=== PATIENT | male | born 1930 | race Caucasian/White ===

== ENCOUNTER 2017-06-23 05:07 | Emergency (ER) | payer OTHER, BC ==
[~2017-06-23] VITALS: Ht 177.8 cm; Wt 70.1 kg
[~2017-06-23 05:07] MED LIST: APRESOLINE100 MG PO; IBUPROFEN800 MG PO; LISINOPRIL5 MG PO; METOPROLOL SUCC25 MG PO; METOPROLOL SUCC50 MG PO; XANAX0.25 MG PO; ZOFRAN ODT4 MG PO; ZOFRAN4 MG PO
[2017-06-23 06:14] LABS: EOSINOPHIL (%) 0.1 % (0-5); HEMATOCRIT 40.6 % (38.0-50.0); IMMATURE GRANULOCYTE (%) 0.7 % (0.0-0.7); IMMATURE GRANULOCYTE COUNT 0.1 K/uL; INSTRUMENT ABS NEUTROPHIL CT 5.9 K/uL; LYMPHOCYTE COUNT 0.7 K/uL (1.0-2.8); MCH 32.6 PG (29.0-34.0); MCHC 33.7 G/DL (30.0-36.0); MCV 96.7 FL (86-99); MONOCYTE (%) 11.4 % (3-12); MONOCYTE COUNT 0.9 K/uL (0-0.8); NEUTROPHIL (%) 78.6 % (45-76); NEUTROPHIL COUNT 5.9 K/uL (1.8-6.4); PLATELET COUNT 158 K/uL (156-360); RBC DIS.WIDTH-CV 11.9 % (11.8-14.6); RBC DIS.WIDTH-SD 42.4 % (39-53); WHITE BLOOD COUNT 7.5 K/uL (4.1-10.2)
[2017-06-23 06:24] LABS: CHLORIDE 102 mEq/L (99-109); SODIUM 132 mEq/L (136-147)
[2017-06-23 06:27] LABS: GLUCOSE 108 mg/dL (70-99)
[2017-06-23 06:28] LABS: ANION GAP 9 MEQ/L (2-14)
[2017-06-23 06:29] LABS: TOTAL BILIRUBIN 1.3 mg/dL (0.0-1.0)
[2017-06-23 06:30] LABS: ALKALINE PHOSPHATASE 43 IU/L (3-129); GFR ESTIMATE (CALCULATED) > 59 mL/min/
[2017-06-23 06:31] LABS: UREA NITROGEN (BUN) 13 mg/dL (9-23)
[2017-06-23 06:34] LABS: LIPASE 88 U/L (1.0-51.0)
[2017-06-23 06:42] LABS: TROP-I INTERPRETATION NEGATIVE; TROPONIN-I 0.02 ng/mL (0.0-0.30)
[2017-06-23 06:55] LABS: ADD MIUA? NO; BILIRUBIN NEGATIVE; BLOOD NEGATIVE; COLOR YELLOW ((YELLOW)); GLUCOSE (STRIP) NEGATIVE; KETONES NEGATIVE; LEUKOCYTES NEGATIVE; NITRITE NEGATIVE; PROTEIN (STRIP) NEGATIVE; SPECIFIC GRAVITY 1.015 (1.000-1.030); UROBILINOGEN 0.2 MG/DL (0.2-1.0)
[2017-06-23 08:39] LABS: TROP-I INTERPRETATION NEGATIVE; TROPONIN-I 0.02 ng/mL (0.0-0.30)
[2017-06-23] MEDS ORDERED: ZOFRAN ODT4 MG PO (09:06)
[2017-06-23] MEDS ORDERED: BENTYL20 MG PO (09:06)
[2017-06-23 09:58] VITALS: BP 157/68
== END 2017-06-23 09:58 | disposition home or self-care (01) ==
LOC: EME 05:07
PROVIDERS: Nurse Practitioner Family; Physician Assistant
DX: R11.0 Nausea (principal); R19.7 Diarrhea, unspecified; M79.1 Myalgia; I10 Essential (primary) hypertension
CPT/HCPCS: 74022; 74177; 80053; 81003; 83605; 83690; 84484; 85025; 93005; 99281; 99284; J0500; J7030

== ENCOUNTER 2017-09-11 14:12 | Emergency (ER) | payer OTHER, BC ==
[~2017-09-11] VITALS: Ht 177.8 cm; Wt 70.4 kg
[~2017-09-11 14:12] MED LIST changes: +BENTYL20 MG PO
[2017-09-11 14:52] LABS: HEMATOCRIT 45.9 % (38.0-50.0); HEMOGLOBIN 16.1 G/DL (12.5-16.6); MCH 33.6 PG (29.0-34.0); MCHC 35.1 G/DL (30.0-36.0); MCV 95.8 FL (86-99); PLATELET COUNT 238 K/uL (156-360); RBC DIS.WIDTH-CV 12.7 % (11.8-14.6); RBC DIS.WIDTH-SD 45.3 % (39-53); RED BLOOD COUNT 4.79 M/uL (4.00-5.50)
[2017-09-11 15:00] LABS: ALBUMIN 3.9 g/dL (3.2-4.8); CHLORIDE 102 mEq/L (99-109); POTASSIUM 4.1 mEq/L (3.7-5.4); SODIUM 133 mEq/L (136-147)
[2017-09-11 15:02] LABS: GLUCOSE 154 mg/dL (70-99); TOTAL PROTEIN 7.3 g/dL (6.4-8.3)
[2017-09-11 15:04] LABS: TOTAL BILIRUBIN 0.7 mg/dL (0.0-1.0)
[2017-09-11 15:06] LABS: ALKALINE PHOSPHATASE 58 IU/L (3-129); CREATININE 1.1 mg/dL (0.6-1.3); GFR ESTIMATE (CALCULATED) > 59 mL/min/ (58.99-99999)
[2017-09-11 15:07] LABS: UREA NITROGEN (BUN) 16 mg/dL (9-23)
[2017-09-11 15:08] LABS: AST (GOT) 24 IU/L (2-34)
[2017-09-11 15:09] LABS: ALT (GPT) 22 IU/L (3-49)
[2017-09-11] MEDS ORDERED: AUGMENTIN500 MG PO (16:40)
[2017-09-11] MEDS ORDERED: CLARITIN10 M3 PO (16:40)
[2017-09-11 16:48] VITALS: BP 181/81
== END 2017-09-11 16:49 | disposition home or self-care (01) ==
LOC: EME 14:12
DX: J32.9 Chronic sinusitis, unspecified (principal); I10 Essential (primary) hypertension
CPT/HCPCS: 71020; 80053; 85027; 93005; 99281; 99283

== ENCOUNTER 2017-09-14 08:51 | Emergency (ER) | payer OTHER, BC ==
[~2017-09-14] VITALS: Ht 177.8 cm; Wt 71.6 kg
[~2017-09-14 08:51] MED LIST changes: +AUGMENTIN500 MG PO; +CLARITIN10 M3 PO
[2017-09-14 09:42] LABS: HEMATOCRIT 46.4 % (38.0-50.0); HEMOGLOBIN 16.5 G/DL (12.5-16.6); MCH 33.7 PG (29.0-34.0); MCHC 35.6 G/DL (30.0-36.0); MCV 94.9 FL (86-99); PLATELET COUNT 231 K/uL (156-360); RBC DIS.WIDTH-CV 12.5 % (11.8-14.6); RED BLOOD COUNT 4.89 M/uL (4.00-5.50); WHITE BLOOD COUNT 8.7 K/uL (4.1-10.2)
[2017-09-14 09:54] LABS: ALBUMIN 3.8 g/dL (3.2-4.8)
[2017-09-14 09:55] LABS: CHLORIDE 103 mEq/L (99-109); POTASSIUM 4.5 mEq/L (3.7-5.4); SODIUM 131 mEq/L (136-147)
[2017-09-14 09:57] LABS: GLUCOSE 116 mg/dL (70-99); TOTAL PROTEIN 6.7 g/dL (6.4-8.3)
[2017-09-14 09:59] LABS: TOTAL BILIRUBIN 0.8 mg/dL (0.0-1.0)
[2017-09-14 10:00] LABS: ALKALINE PHOSPHATASE 59 IU/L (3-129)
[2017-09-14 10:01] LABS: CREATININE 0.9 mg/dL (0.6-1.3); GFR ESTIMATE (CALCULATED) > 59 mL/min/ (58.99-99999)
[2017-09-14 10:02] LABS: AST (GOT) 20 IU/L (2-34); UREA NITROGEN (BUN) 17 mg/dL (9-23)
[2017-09-14 10:03] LABS: ALT (GPT) 19 IU/L (3-49)
[2017-09-14 10:04] LABS: LIPASE 110 U/L (1.0-51.0)
[2017-09-14 12:00] LABS: C DIFF TOXIN NEGATIVE (NEGATIVE)
[2017-09-14] MEDS ORDERED: ZOFRAN ODT4 MG PO (12:03)
[2017-09-14] MEDS ORDERED: BENTYL20 MG PO (12:03)
[2017-09-14 13:09] VITALS: BP 184/81
== END 2017-09-14 13:14 | disposition home or self-care (01) ==
LOC: EME 08:51
PROVIDERS: Nurse Practitioner Family
DX: R11.2 Nausea with vomiting, unspecified (principal); R19.7 Diarrhea, unspecified; E86.0 Dehydration; R74.8 Abnormal levels of other serum enzymes; I10 Essential (primary) hypertension
CPT/HCPCS: 74177; 80053; 81003; 83605; 83690; 85027; 87493; 93005; 99281; 99285; J2405; J7030

== ENCOUNTER 2018-03-22 10:41 | Emergency (ER) | payer OTHER, BC ==
[~2018-03-22] VITALS: Ht 177.8 cm; Wt 70.0 kg
[2018-03-22 12:08] LABS: APPEARANCE CLEAR ((CLEAR)); BILIRUBIN NEGATIVE; BLOOD NEGATIVE; COLOR YELLOW ((YELLOW)); GLUCOSE (STRIP) NEGATIVE; KETONES NEGATIVE; LEUKOCYTES NEGATIVE; NITRITE NEGATIVE; PROTEIN (STRIP) NEGATIVE; SPECIFIC GRAVITY 1.012 (1.000-1.030); UCUL ADDED? NO; UROBILINOGEN 0.2 MG/DL (0.2-1.0)
[2018-03-22 12:16] LABS: HEMATOCRIT 44.8 % (38.0-50.0); MCH 34.1 PG (29.0-34.0); MCHC 35.7 G/DL (30.0-36.0); MCV 95.5 FL (86-99); PLATELET COUNT 187 K/uL (156-360); RBC DIS.WIDTH-CV 12.3 % (11.8-14.6); RBC DIS.WIDTH-SD 43.2 % (39-53); RED BLOOD COUNT 4.69 M/uL (4.00-5.50); WHITE BLOOD COUNT 6.9 K/uL (4.1-10.2)
[2018-03-22 12:22] LABS: ALBUMIN 3.9 g/dL (3.2-4.8); CHLORIDE 105 mEq/L (99-109); POTASSIUM 4.3 mEq/L (3.7-5.4); SODIUM 136 mEq/L (136-147)
[2018-03-22 12:25] LABS: GLUCOSE 115 mg/dL (70-99); TOTAL PROTEIN 6.7 g/dL (6.4-8.3)
[2018-03-22 12:27] LABS: TOTAL BILIRUBIN 1.1 mg/dL (0.0-1.0)
[2018-03-22 12:28] LABS: ALKALINE PHOSPHATASE 55 IU/L (3-129); CREATININE 0.9 mg/dL (0.6-1.3); GFR ESTIMATE (CALCULATED) > 59 mL/min/ (58.99-99999)
[2018-03-22 12:29] LABS: UREA NITROGEN (BUN) 11 mg/dL (9-23)
[2018-03-22 12:30] LABS: AST (GOT) 17 IU/L (2-34)
[2018-03-22 12:31] LABS: ALT (GPT) 13 IU/L (3-49)
[2018-03-22 13:08] LABS: LIPASE 18 U/L (1.0-51.0)
[2018-03-22] MEDS ORDERED: PROTONIX40 MG PO (14:42)
[2018-03-22] MEDS ORDERED: ZOFRAN4 MG PO (14:42)
[2018-03-22] MEDS ORDERED: CARAFATE1 GM PO (14:42)
[2018-03-22 16:10] VITALS: BP 211/85
== END 2018-03-22 16:13 | disposition home or self-care (01) ==
LOC: EME 10:41
DX: K29.70 Gastritis, unspecified, without bleeding (principal); R00.1 Bradycardia, unspecified; I10 Essential (primary) hypertension; Z73.3 Stress, not elsewhere classified; K40.20 Bilateral inguinal hernia, without obstruction or gangrene, not specified as recurrent
CPT/HCPCS: 74176; 80053; 81003; 83690; 85027; 93005; 99281; 99284; Q0177